=== PATIENT | male | born 1995 | race Caucasian/White ===

== ENCOUNTER 2019-04-30 10:26 | Emergency (ER) | payer SELFPAY ==
[~2019-04-30] VITALS: Ht 160 cm; Wt 65.0 kg
[2019-04-30 13:30] VITALS: BP 145/85
[2019-04-30] MEDS ORDERED: KETOROLAC 30MG/ML VIAL IM ONE (13:30)
[2019-04-30 14:18] LABS: CLARITY URINE CLEAR (CLEAR); COLOR URINE YELLOW (YELLOW); KETONES URINE NEGATIVE (NEGATIVE); LEUKOCYTE ESTERASE URINE NEGATIVE (NEGATIVE); NITRITE URINE NEGATIVE (NEGATIVE); OCCULT BLOOD URINE 1+ (NEGATIVE); PROTEIN URINE NEGATIVE (NEGATIVE); SPECIFIC GRAVITY URINE 1.013 (1.005-1.030); UROBILINOGEN URINE 0.2 E.U./dL (0.2-1.0)
== END 2019-04-30 15:02 | disposition home or self-care (01) ==
LOC: ER 10:36
DX: M54.5 Low back pain (principal); M54.6 Pain in thoracic spine
CPT/HCPCS: 71045; 81003; 93005; 96372; 99284; J1885